=== PATIENT | female | born 1980 | race Hispanic/Latino ===

== ENCOUNTER → 2019-09-24 | Outpatient (CLI) | payer MEDICARE ==
[~2019-09-24] MED LIST: DIATRIZOATE MEGL/DIATRIZOA SOD 30 ML BTL PO ONE; IOPAMIDOL 370 MG/ML 200 ML INFUS..BTL INJ ONE; SODIUM CHLORIDE 0.9% 50ML 50 ML ONE
--- NOTE | 2019-09-25 11:34 | Diagnostic Imaging Report ---
EXAM: CT Abdomen and Pelvis WITH intravenous contrast INDICATION: Hiatal hernia COMPARISON: None. TECHNIQUE: Abdomen and pelvis were scanned utilizing a multidetector helical scanner from the lung base to the pubic symphysis after administration of IV contrast. Coronal and sagittal reformations were obtained. Routine protocol was performed. Scan was performed during portal venous phase. IV CONTRAST: 100mL of Isovue 370 ORAL CONTRAST: Gastrografin RADIATION DOSE: Total DLP: 825 mGy*cm Dose modulation, iterative reconstruction, and/or weight based adjustment of the mA/kV was utilized to reduce the radiation dose to as low as reasonably achievable. FINDINGS: LOWER THORAX: Normal. HEPATOBILIARY: Diffuse hepatic steatosis. No focal liver lesion. No biliary ductal dilation. Status post cholecystectomy. SPLEEN: No splenomegaly. PANCREAS: No focal masses or ductal dilatation. ADRENALS: No adrenal nodules. KIDNEYS/URETERS: No hydronephrosis, renal calculi, or solid mass lesion. Prior renal arterial coil embolization on the right. PELVIC ORGANS/BLADDER: Unremarkable. PERITONEUM / RETROPERITONEUM: No free air or fluid. LYMPH NODES: No lymphadenopathy. VESSELS: Infrarenal IVC filter in place. GI TRACT: No significant hiatal hernia. 1.9 cm filling defect along the posterior wall of the body of the stomach. Diverticulosis without CT evidence of diverticulitis. No abnormal bowel thickening. No bowel obstruction. Normal appendix. BONES AND SOFT TISSUES: No acute osseous injury. Postoperative findings of internal fixation of both hips. IMPRESSION: No significant hiatal hernia. 1.9 cm filling defect along the posterior wall of the body of the stomach may represent ingested material versus an endoluminal soft tissue lesion. Recommend further evaluation with endoscopy if not already performed. Diverticulosis without CT evidence of diverticulitis. Diffuse hepatic steatosis. Signed by: Wally Herman MD on 09/25/2019 11:31 AM
== END ==
LOC: CT 15:07
PROVIDERS: ATTEND Surgery
DX: K44.9 Diaphragmatic hernia without obstruction or gangrene (principal); K21.9 Gastro-esophageal reflux disease without esophagitis
CPT/HCPCS: 74177; Q9967

== ENCOUNTER 2024-06-26 23:53 | Emergency (ER) | payer MEDICARE ==
[~2024-06-26] VITALS: Ht 157.5 cm; Wt 90.7 kg
[~2024-06-26 23:53] MED LIST changes: +CEPHALEXIN500 MG PO; -DIATRIZOATE MEGL/DIATRIZOA SOD 30 ML BTL PO ONE; -IOPAMIDOL 370 MG/ML 200 ML INFUS..BTL INJ ONE; +KETOROLAC TROME10 MG PO; -SODIUM CHLORIDE 0.9% 50ML 50 ML ONE
[2024-06-27 00:02] VITALS: TEMP 97.9
[2024-06-27 00:27] LABS: BASOPHILS # (AUTO) 0.1 (0.0-0.1); BASOPHILS % 0.3 % (0.0-1.0); EOSINOPHILS # (AUTO) 0.2 (0.0-0.4); EOSINOPHILS % 1.4 % (0.0-6.0); HEMATOCRIT 35.4 % (34.2-44.1); HEMOGLOBIN 10.4 g/dL (12.0-16.0); LYMPHOCYTES # (AUTO) 3.8 (1.0-3.2); LYMPHOCYTES % 21.8 % (18.0-39.1); MEAN CORPUSCULAR HEMOGLOBIN 18.8 pg (28-32); MEAN CORPUSCULAR HGB CONC 29.4 g/dL (31-35); MEAN CORPUSCULAR VOLUME 64.1 fL (81-99); MONOCYTES # (AUTO) 1.1 (0.2-0.8); MONOCYTES % 6.1 % (4.4-11.3); NEUTROPHILS # (AUTO) 12.2 (2.1-6.9); NEUTROPHILS % 69.9 % (38.7-80.0); PLATELET COUNT 598 x10e3/uL (140-360); RED BLOOD COUNT 5.52 x10e6/uL (3.6-5.1); RED CELL DISTRIBUTION WIDTH 21.7 % (11.7-14.4)
[2024-06-27 00:56] LABS: ALBUMIN 3.5 g/dL (3.5-5.0); ALBUMIN/GLOBULIN RATIO 0.7 (0.8-2.0); ANION GAP 16.8 mmol/L (8-16); BILIRUBIN,TOTAL 0.3 mg/dL (0.2-1.2); CALCIUM 9.7 mg/dL (8.4-10.2); CREATININE, SERUM 0.71 mg/dL (0.57-1.11); POTASSIUM 3.8 mmol/L (3.5-5.1); TOTAL PROTEIN 8.3 g/dL (6.5-8.1)
[2024-06-27] MEDS: SODIUM CHLORIDE 0.9% 1000ML 1,000 ML IV STA (01:15)
[2024-06-27 01:57] LABS: BILIRUBIN,URINE NEGATIVE (NEGATIVE); CLARITY,URINE CLEAR (CLEAR); COLOR,URINE YELLOW (YELLOW); GLUCOSE, URINE 500 (NEGATIVE); KETONES,URINE NEGATIVE (NEGATIVE); LEUKOCYTE ESTERASE ,URINE NEGATIVE (NEGATIVE); NITRITE,URINE NEGATIVE (NEGATIVE); PH,URINE 7 (5 - 7); PROTEIN,URINE DIPSTICK NEGATIVE (NEGATIVE); URINE UROBILINOGEN 0.2 mg/dL (0.2 - 1)
[2024-06-27] MEDS: KETOROLAC TROMETHAMINE 30 MG/ML VIAL IV STA (01:57)
[2024-06-27 02:19] LABS: CORONAVIRUS COVID-19 AG NEGATIVE (NEGATIVE); INFLUENZA A AG NEGATIVE (NEGATIVE); INFLUENZA B AG NEGATIVE (NEGATIVE)
[2024-06-27 02:32] LABS: BACTERIA,URINE FEW /HPF; RBC,URINE 0-5 /HPF (0-5); WBC,URINE (MAN) 0-5 /HPF (0-5)
[2024-06-27 02:33] LABS: EPITHELIAL CELLS,URINE MODERATE /LPF
[2024-06-27 02:52] LABS: TROPONIN I 0.011 ng/mL (0-0.300)
[2024-06-27 03:13] VITALS: PULSE 82; RESP 17; O2SAT 98
[2024-06-27 03:14] VITALS: BP 129/72
[2024-06-27] MEDS: HYDRALAZINE HCL 20 MG/ML VIAL IV STA (03:14)
[2024-06-27] MEDS ORDERED: AMOX TR-K CLV1 EAC2 PO (06:12)
[2024-06-27 06:54] LABS: ANISOCYTOSIS MODERATE; HYPOCHROMASIA MODERATE; MICROCYTOSIS MODERATE; PLATELET ESTIMATE ADEQUATE; PLATELET MORPHOLOGY COMMENT NORMAL; RBC MORPHOLOGY COMMENT ABNORMAL
[2024-06-27 06:55] LABS: POLYCHROMASIA FEW
== END 2024-06-27 03:46 | disposition home or self-care (01) ==
LOC: ER 06-27 → MERGE 06-27 → ER 06-27 03:46
DX: R20.2 Paresthesia of skin (principal); I16.0 Hypertensive urgency; M62.838 Other muscle spasm; D72.829 Elevated white blood cell count, unspecified; I10 Essential (primary) hypertension; Z11.52 Encounter for screening for COVID-19
CPT/HCPCS: 36415; 70450; 71045; 80053; 81001; 82550; 83690; 83880; 84484; 85025; 87428; 93005; 99284; J1885; J7030

== ENCOUNTER 2024-07-04 04:30 | Emergency (ER) | payer MEDICARE ==
[~2024-07-04] VITALS: Ht 157.5 cm; Wt 90.7 kg
[~2024-07-04 04:30] MED LIST changes: +AMOX TR-K CLV1 EAC2 PO
[2024-07-04 04:34] VITALS: PULSE 98; RESP 16; TEMP 98.1
[2024-07-04] MEDS: ORPHENADRINE CITRATE 30 MG/ML VIAL IM ONE (05:01)
[2024-07-04] MEDS: KETOROLAC TROMETHAMINE 60 MG/2 ML VIAL IM ONE (05:01)
[2024-07-04] MEDS ORDERED: ORPHENADRINE C100 MG PO (05:21)
[2024-07-04] MEDS ORDERED: KETOROLAC TROME10 MG PO (05:21)
[2024-07-04 05:35] VITALS: BP 156/96; O2SAT 99
== END 2024-07-04 05:36 | disposition home or self-care (01) ==
LOC: ER 04:38
DX: M79.605 Pain in left leg (principal); M62.838 Other muscle spasm; G89.29 Other chronic pain; I10 Essential (primary) hypertension; E11.9 Type 2 diabetes mellitus without complications; E78.5 Hyperlipidemia, unspecified
CPT/HCPCS: 99283; J1885; J2360